=== PATIENT | female | born 1960 | race Caucasian/White ===

== ENCOUNTER → 2018-02-13 | Emergency (ER) | payer OTHER ==
[~2018-02-13] VITALS: Ht 162.6 cm; Wt 77.1 kg
[~2018-02-13] MED LIST: ATORVASTATIN CA20 MG PO; SINGULAIR10 MG PO
== END | disposition left against medical advice (07) ==
LOC: ER 16:06
DX: Z53.20 Procedure and treatment not carried out because of patient's decision for unspecified reasons (principal)